=== PATIENT | male | born 1985 | race American Indian/Alaskan Native ===

== ENCOUNTER 2021-09-30 02:06 | Emergency (ER) | payer SELFPAY ==
[2021-09-30] MEDS ORDERED: ASPIRIN 325 MG TAB PO ONE (02:38)
[2021-09-30 03:09] LABS: Basophils % (Auto) 0.7 % (0.0-1.8); Eosinophils % (Auto) 0.9 % (0.0-4.3); Hematocrit 39.2 % (35.5-45.6); Hemoglobin 12.6 gm/dl (11.8-15.2); Lymphocytes # (Auto) 1.8 K/mm3 (1.2-5.4); Lymphocytes % (Auto) 36.7 % (13.4-35.0); Mean Corpuscular HGB Conc 32 % (32-34); Mean Corpuscular Volume 93 fl (84-94); Monocytes # (Auto) 0.4 K/mm3 (0.0-0.8); Monocytes % (Auto) 9.2 % (0.0-7.3); Platelet Count 235 K/mm3 (140-440); Red Blood Count 4.21 M/mm3 (3.65-5.03); Red Cell Distribution Width 14.1 % (13.2-15.2)
[2021-09-30 03:27] LABS: Alanine Aminotransferase 19 units/L (7-56); Albumin 3.9 g/dL (3.9-5); BUN/Creatinine Ratio 13; Blood Urea Nitrogen 12 mg/dL (9-20); Calcium 8.6 mg/dL (8.4-10.2); Hemolysis Index 11
--- NOTE | 2021-09-30 03:29 | XRay Report ---
CHEST 2 VIEWS INDICATION / CLINICAL INFORMATION: CHEST PAIN. COMPARISON: None available. FINDINGS: SUPPORT DEVICES: None. HEART / MEDIASTINUM: No significant abnormality. LUNGS / PLEURA: No significant pulmonary or pleural abnormality. No pneumothorax. BONES: No significant osseous abnormality. ADDITIONAL FINDINGS: No significant additional findings. IMPRESSION: 1. No active cardiopulmonary disease. Signer Name: Bautista Hyde II, MD Signed: 09/30/2021 3:25 AM Workstation Name: [id number]
[2021-09-30] MEDS ORDERED: LIDOCAINE VISCOUS 2% 15 ML ORAL LIQD MM ONE (04:41)
[2021-09-30] MEDS ORDERED: ALUM-MAG HYDROXIDE-SIMETHICONE 200-200-20MG/5ML ORAL LIQD 30 ML PO STA (04:41)
[2021-09-30] MEDS ORDERED: diphenhydrAMINE 25 MG/10 ML ORAL LIQUID PO ONE (04:41)
--- NOTE | 2021-09-30 06:43 | Emergency Department Report ---
ED General Adult HPI - General Chief complaint: Chest Pain Stated complaint: CHEST PAIN Time Seen by Provider: 09/30/21 03:24 Source: patient Mode of arrival: Ambulatory Limitations: No Limitations - History of Present Illness Initial comments: 28-year-old Nep[place]e male with a past medical history of acid reflux disease and chest pain has been evaluated by cardiology presents emerged from complaining of chest pain for the last 2 days after having asked argument with his roommate. Pain is dull and burning radiating up and down chest symptoms across to the left side. No palliative factors have been associated. No numbness, no tingling, no hemoptysis, hematemesis, hematochezia, no fever, chills, sweats. Location: chest Radiation: non-radiation Consistency: constant Improves with: none Worsens with: none Associated Symptoms: chest pain. denies: diaphoresis, loss of appetite, malaise, rash, shortness of breath, syncope Treatments Prior to Arrival: none - Related Data Allergies Allergy/AdvReac Type Severity Reaction Status Date / Time No Known Allergies Allergy Verified 09/30/21 02:38 ED Review of Systems ROS: Stated complaint: CHEST PAIN Other details as noted in HPI Comment: All other systems reviewed and negative ED Physical Exam - General Limitations: No Limitations General appearance: alert, in no apparent distress - Head Head exam: Present: atraumatic, normocephalic - Eye Eye exam: Present: normal appearance - ENT ENT exam: Present: normal exam, mucous membranes moist - Neck Neck exam: Present: normal inspection - Respiratory Respiratory exam: Present: normal lung sounds bilaterally. Absent: respiratory distress - Cardiovascular Cardiovascular Exam: Present: regular rate, normal rhythm. Absent: systolic m urmur, diastolic murmur, rubs, gallop - GI/Abdominal GI/Abdominal exam: Present: soft, normal bowel sounds - Rectal Rectal exam: Present: deferred - Extremities Exam Extremities exam: Present: normal inspection - Back Exam Back exam: Present: normal inspection - Neurological Exam Neurological exam: Present: alert, oriented X3 - Psychiatric Psychiatric exam: Present: normal affect, normal mood - Skin Skin exam: Present: warm, dry, intact, normal color. Absent: rash ED Course Vital Signs 09/30/21 09/30/21 02:14 06:46 Temperature 98.6 F Pulse Rate 81 66 Respiratory 18 12 Rate Blood Pressure 141/75 Blood Pressure 136/81 [Right] O2 Sat by Pulse 99 100 Oximetry ED Medical Decision Making - Lab Data Result diagrams: 09/30/21 02:44 09/30/21 02:44 - EKG Data EKG shows normal: sinus rhythm - EKG Data When compared to previous EKG there are: no significant change Interpretation: no acute changes - Radiology Data Radiology results: report reviewed [facility] [address] [place] [address] XRay Report Signed Patient: BRENNAN DEJESUS MR#: [id number] : 1985 Acct:[id number] Age/Sex: 36 / M ADM Date: 09/30/21 Loc: ED Attending Dr: Ordering Physician: ED MD LAWRENCE Date of Service: 09/30/21 Procedure(s): XR chest routine 2V Accession Number(s): [id number] cc: ED MD LAWRENCE Fluoro Time In Minutes: CHEST 2 VIEWS INDICATION / CLINICAL INFORMATION: CHEST PAIN. COMPARISON: None available. FINDINGS: SUPPORT DEVICES: None. HEART / MEDIASTINUM: No significant abnormality. LUNGS / PLEURA: No significant pulmonary or pleural abnormality. No pneumothorax. BONES: No significant osseous abnormality. ADDITIONAL FINDINGS: No significant additional findings. IMPRESSION: 1. No active cardiopulmonary disease. Signer Name: Danny Hyde II, MD Signed: 09/30/2021 3:25 AM Workstation Name: [id number] Transcribed By: HANNA Dictated By: DANNY HYDE II, MD Electronically Authenticated By: DANNY HYDE II, MD Signed Date/Time: 09/30/21324 DD/ 4 TD/TT: - Medical Decision Making This patient presents with chest pain that is very unlikely angina or acute coronary syndrome. The emergency department evaluation has not identified any cause for suspicion that this chest pain has a cardiac etiology. Based on their history, EKG (which showed no evidence of ischemia or infarction) and imaging, in addition to the patient's physical exam, I see no evidence at this time for a malignant etiology for the patient's chest pain. There is no acute evidence for pulmonary embolus, acute myocardial infarction, pneumothorax, Boerhaeve syndrome, cardiac tamponade, thoracic artery dissection, or any other emergent cardiac, pulmonary or aortic pathology. Given the low pre-test probability for cardiac etiology of chest pain and the absence of any sign of ischemia or infarction, discharge for outpatient follow-up and further evaluation is reasonable. I have explained to the patient that even though a cardiac problem is very unlikely, follow-up and further testing is required to reduce further the already small uncertainty that exists. Other life-threatening diagnoses have been considered. The patient understands the need to return immediately if their symptoms worsen or they develop any new symptoms, and not to engage in any significant exertional activity until follow-up is obtained. Critical care attestation.: If time is entered above; I have spent that time in minutes in the direct care of this critically ill patient, excluding procedure time. ED Disposition Clinical Impression: Chest pain Disposition: 01 HOME / SELF CARE / HOMELESS Is pt being admited?: No Does the pt Need Aspirin: No Condition: Stable Instructions: Nonspecific Chest Pain, Adult Referrals: FRANCISCA MENSAH MD [Staff Physician] - 3-5 Days Forms: Work/School Release Form(ED)
[2021-09-30 06:47] VITALS: BP 136/81
--- NOTE | 2021-10-01 14:15 | Electrocardiograph Report ---
[facility] Test Date: 2021-09-30 Test Time: 02:29:00 Pat Name: BRENNAN DEJESUS Department: Room: Gender: M [employer] Clipper: ALFONSO : 1985 Requested By: IGNACIO DENSON Order Number: [id number] Reading MD: Zelda Esposito Measurements Intervals [place] Rate: 63 P: 53 NH: 155 QRS: 72 QRSD: 89 T: 67 QT: 382 QTc: 392 Interpretive Statements Sinus rhythm Normal ECG No previous ECG available for comparison Electronically Signed On 10-01-2021 14:14:42 EDT by Zelda Esposito
== END 2021-09-30 06:48 | disposition home or self-care (01) ==
LOC: ED 02:06
DX: R07.89 Other chest pain (principal)
CPT/HCPCS: 36415; 71046; 80053; 84484; 85025; 93005; 99284; Q0163